=== PATIENT | female | born 1975 | race Caucasian/White ===

== ENCOUNTER 2017-10-01 09:23 | Emergency (ER) | payer MEDICAID, SELFPAY ==
[2017-10-01 09:37] VITALS: BP 136/68; PULSE 69; RESP 20; TEMP 36.6; O2SAT 97; BMI 27.8
--- NOTE | 2017-10-01 10:04 | HMH.EDUTC ---
[facility] [place] Disposition Clinical Impression: Conjunctivitis Qualifiers: Conjunctivitis type: other Laterality: right Qualified Code(s): H10.89 - Other conjunctivitis Disposition: Home, Self-Care Condition on Discharge: Good Instructions: Conjunctivitis, DI for Conjunctivitis, Conjunctivitis (Alternative Therapy) Additional Instructions: Clean eye with baby shampoo and warm water Warm compresses will help to remove matting in the mornings from eye and help to soothe irritation Use drops as prescribed If no improvement or worsening of symptoms go see Dr Hamilton for further treatment and evaluation Return if needed Prescriptions: Gentamicin Sulfate [Garamycin 0.3% opth vanessa 5mL] 1 - 2 drops EYE-RIGHT Q4H #1 drops Referrals: Arminda Lynn [Primary Care Provider] - Forms: Work/School Release Time of Disposition: 10:17 Medical Decision Making - Medical Records Medical records reviewed: Yes: I reviewed the patient's medical records. Vital Signs: 10/01/17 09:37 Temperature 97.8 F Temperature Source Temporal Artery Scan Pulse Rate [Right Radial] 69 Respiratory Rate 20 Blood Pressure [Right Arm] 136/68 Blood Pressure Mean [Right Arm] 90 02 Sat by Pulse Oximetry 97 Oxygen Delivery Method Room Air - Librado Inquiry Pt receiving controlled substance: No Librado was queried for this patient: No [facility] [place] HPI - General Stated complaint: right eye red itchy and draining Mode of Arrival: Family Vehicle Source of Information: Patient Limitations: No Limitations Description of Symptoms (Recalled from Triage Doc. by RN): pt c/o right eye draining and irritated. 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 State that she has been having yellowish drainage and this morning her eye was matted again and so she came in to get checked out - Related Data Home Medications Medication Instructions Recorded Confirmed Citalopram Hydrobromide [Celexa 40 mg PO DAILY 10/01/17 10/01/17 40mg Tablet] Levothyroxine Sodium 88 mcg PO DAILY 10/01/17 10/01/17 [Levothyroxine 88mcg (0.088mg) Tab] Previous Rx's Medication Instructions Recorded Gentamicin Sulfate [Garamycin 0.3% 1 - 2 drops EYE-RIGHT Q4H #1 drops 10/01/17 opth vanessa 5mL] Allergies Allergy/AdvReac Type Severity Reaction Status Date / Time PENICILLIN Allergy Intermediate I-RASH Uncoded 10/01/17 09:41 - Worker's Comp Is this a Worker's Comp case?: No [facility] History I have reviewed the patient's past medical history: Yes Medical History: Denies:: Cancer, Diabetes Mellitus Type 1, Diabetes Mellitus Type 2, MRSA Amputation: No Fractures: No - Social History Smoking Status: Current every day smoker Tobacco Type: cigarettes Alcohol Intake: never - Psychiatric History Expresses thoughts of harming self/others: None Suicide Plan Description: No Plan ROS Obtained: Yes All systems reviewed & no additional complaints - Eyes Eyes: Denies blurry vision, Reports eye discharge, Reports irritation, Reports other (Red conjunctiva, matting of eyes) Physical Exam - General General appearance: alert, in no apparent distress - Expanded Eye Exam Pupils: Bilateral: regular, round Sclera/Conjunctival: right: exudate (Redness in conjunctiva like that seen with Conjunctivitis with yellowish colored drainage from eye) - Respiratory Respiratory exam: Present: normal lung sounds bilaterally. Absent: respiratory distress - Cardiovascular Cardiovascular exam: Present: regu
--- NOTE | 2017-10-01 10:10 | ED_ITS ---
[facility] [place] Disposition Clinical Impression: Conjunctivitis Qualifiers: Conjunctivitis type: other Laterality: right Qualified Code(s): H10.89 - Other conjunctivitis Disposition: Home, Self-Care Condition on Discharge: Good Instructions: Conjunctivitis, DI for Conjunctivitis, Conjunctivitis ( Alternative Therapy) Additional Instructions: Clean eye with baby shampoo and warm water Warm compresses will help to remove matting in the mornings from eye and help to soothe irritation Use drops as prescribed If no improvement or worsening of symptoms go see Dr Hamilton for further treatment and evaluation Return if needed Prescriptions: Gentamicin Sulfate [Garamycin 0.3% opth vanessa 5mL] 1 - 2 drops EYE-RIGHT Q4H #1 drops Referrals: Arminda Lynn [Primary Care Provider] - Forms: Work/School Release Time of Disposition: 10:17 Medical Decision Making - Medical Records Medical records reviewed: Yes: I reviewed the patient's medical records. Vital Signs: 10/01/17 09:37 Temperature 97.8 F Temperature Source Temporal Artery Scan Pulse Rate [Right Radial] 69 Respiratory Rate 20 Blood Pressure [Right Arm] 136/68 Blood Pressure Mean [Right Arm] 90 02 Sat by Pulse Oximetry 97 Oxygen Delivery Method Room Air - Librado Inquiry Pt receiving controlled substance: No Librado was queried for this patient: No [facility] [place] HPI - General Stated complaint: right eye red itchy and draining Mode of Arrival: Family Vehicle Source of Information: Patient Limitations: No Limitations Description of Symptoms (Recalled from Triage Doc. by RN): pt c/o right eye draining and irritated. 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 State that she has been having yellowish drainage and this morning her eye was matted again and so she came in to get checked out - Related Data Home Medications Medication Instructions Recorded Confirmed Citalopram Hydrobromide [Celexa 40 mg PO DAILY 10/01/17 10/01/17 40mg Tablet] Levothyroxine Sodium 88 mcg PO DAILY 10/01/17 10/01/17 [Levothyroxine 88mcg (0.088mg) Tab] Previous Rx's Medication Instructions Recorded Gentamicin Sulfate [Garamycin 0.3% 1 - 2 drops EYE-RIGHT Q4H #1 drops 10/01/17 opth vanessa 5mL] Allergies Allergy/AdvReac Type Severity Reaction Status Date / Time PENICILLIN Allergy Intermediate I-RASH Uncoded 10/01/17 09:41 - Worker's Comp Is this a Worker's Comp case?: No [facility] History I have reviewed the patient's past medical history: Yes Medical History: Denies:: Cancer, Diabetes Mellitus Type 1, Diabetes Mellitus Type 2, MRSA Amputation: No Fractures: No - Social History Smoking Status: Current every day smoker Tobacco Type: cigarettes Alcohol Intake: never - Psychiatric History Expresses thoughts of harming self/others: None Suicide Plan Description: No P
[2017-10-01 10:18] VITALS: BP 127/77; PULSE 87; RESP 20; TEMP -6.6; TEMP 20; O2SAT 99
== END 2017-10-01 10:19 | disposition home or self-care (01) ==
PROVIDERS: Emergency Provider Nurse Practitioner; PCP Nurse Practitioner Family
DX: H10.89 Other conjunctivitis (principal); F17.210 Nicotine dependence, cigarettes, uncomplicated; Z79.899 Other long term (current) drug therapy
CPT/HCPCS: 99202